=== PATIENT | female | born 1945 | race Caucasian/White ===

== ENCOUNTER 2016-11-11 09:13 | Day surgery (SDC) | payer BC ==
--- NOTE | ~2016-11-11 | EGD ---
EGD REPORT [facility] [address] [address] NAME: RODRICK FRANCISCO : [birth year] STATUS : REG [facility]#: [id number] AGE: 71 ADM/REG DATE : 11/11/16 MR#: [id number] REPORT SERV DATE: 11/11/16 DICTATED BY: KODY ALAN DATE: 11/11/16 REPORT STATUS : Draft [facility]: [facility] DATE: 11/11/16 Endoscopy Center Patient Name: Rodrick Francisco Date of : 1945 Attending MD: KODY ALAN MD Procedure Date No Time: 11/11/2016 Procedure: Colonoscopy Indications: Personal history of malignant neoplasm of the colon Referring MD: JOSIAH VIDAL MD Medicines: as per anesthesia Complications: No immediate complications. Procedure: Pre-Anesthesia Assessment: - ASA Grade Assessment: III - A patient with severe systemic disease. After I obtained informed consent, the scope was passed under direct vision. Throughout the procedure, the patient's blood pressure, pulse, and oxygen saturations were monitored continuously. The PCF [id number] was introduced through the anus and advanced to the cecum, identified by appendiceal orifice and ileocecal valve. The colonoscopy was performed without difficulty. The patient tolerated the procedure. The quality of the bowel preparation was fair. Findings: The perianal and digital rectal examinations were normal. There was evidence of a prior end-to-end colo-colonic anastomosis in the sigmoid colon. This was patent. This was characterized by healthy appearing mucosa. This was traversed. Impression: - Patent end-to-end colo-colonic anastomosis. Recommendation: - Repeat colonoscopy in 3 years for surveillance. Procedure Code(s): --- Professional --- 84156, Colonoscopy, flexible, proximal to splenic flexure; diagnostic, with or without collection of specimen(s) by brushing or washing, with or without colon decompression (separate procedure) Diagnosis Code(s): --- Professional --- Z98.0, Intestinal bypass and anastomosis status Z85.038, Personal history of other malignant neoplasm of large intestine EGD REPORT [facility] [address] [id number] NAME: RODRICK FRANCISCO : [birth year] STATUS : REG [facility] PAT#: [id number] AGE: 71 ADM/REG DATE : 11/11/16 MR#: [id number] REPORT SERV DATE: 11/11/16 DICTATED BY: KODY ALAN. DATE: 11/11/16 REPORT STATUS : Draft TRANSCRIBED BY: [employer] DATE: 11/11/16 CPT copyright 2013 [employer]. All rights reserved. The codes documented in this report are preliminary and upon sleep technician review may be revised to meet current compliance requirements. KODY ALAN MD 11/11/2016 11:28 AM This report has been signed electronically. Number of Addenda: 0 Note Initiated On: 11/11/2016 11:01 AM Scope Withdrawal Time 0 hours 7 minutes 36 seconds [id number] [id number]
[~2016-11-11 09:13] MED LIST: C25 PO; CORTEF5 PO; COUMADIN PO; DHE1 OR; DHEA25 MG OR; FLORINEF0.1 MG PO; LEXAPRO20 PO; NORCO1 TA1 PO; P1 PO; P5 PO; PRAV10 PO; PRAVAC PO; PRILO PO; SYN112 PO; SYN125 PO; TRAZ50 PO; TRAZODONE; VICODINTAB PO; WELL100 PO; WELLXL150 PO; ZOFRAN4 PO
== END 2016-11-11 23:59 | disposition home or self-care (01) ==
LOC: DMU 09:13
PROVIDERS: Internal Medicine Gastroenterology
PROC: 0DJD8ZZ Inspection of Lower Intestinal Tract, Via Natural or Artificial Opening Endoscopic (ICD-10-PCS; principal; 2016-11-11 10:30)
DX: Z08 Encounter for follow-up examination after completed treatment for malignant neoplasm (principal); I10 Essential (primary) hypertension; Z98.0 Intestinal bypass and anastomosis status; Z85.038 Personal history of other malignant neoplasm of large intestine; Z86.718 Personal history of other venous thrombosis and embolism